=== PATIENT | female | born 1985 | race Native Hawaiian/Other Pacific Islander ===

== ENCOUNTER 2019-02-19 10:22 | Emergency (ER) | payer OTHER ==
[~2019-02-19] VITALS: Ht 172.7 cm; Wt 81.6 kg
[2019-02-19 10:28] VITALS: TEMP 97.9
[2019-02-19 11:23] LABS: PLATELET COUNT 279 K/uL (152-353)
[2019-02-19 11:29] LABS: POTASSIUM 3.3 mmol/L (3.6-5.2)
[2019-02-19 12:56] VITALS: BP 141/79
== END 2019-02-19 12:56 | disposition home or self-care (01) ==
LOC: ED 10:22
PROVIDERS: Family Medicine
DX: N39.0 Urinary tract infection, site not specified (principal); D64.89 Other specified anemias; R10.32 Left lower quadrant pain; E87.6 Hypokalemia
CPT/HCPCS: 80053; 81000; 85027; 87077; 87086; 87088; 87186; 96372; 99283; J1885

== ENCOUNTER 2020-02-05 10:38 | Outpatient (CLI) | payer OTHER ==
[2020-02-05 10:57] LABS: PLATELET COUNT 272 K/uL (152-353)
== END 2020-02-05 21:06 | disposition home or self-care (01) ==
LOC: LABW 10:38
PROVIDERS: ATTEND Plastic Surgery
DX: Z01.818 Encounter for other preprocedural examination (principal)
CPT/HCPCS: 36415; 81000; 85027